=== PATIENT | male | born 1940 | race Caucasian/White ===

== ENCOUNTER 2019-09-06 13:15 | Day surgery (SDC) | payer MEDICARE, OTHER ==
[~2019-09-06] VITALS: Ht 167.6 cm; Wt 76.1 kg
[2019-09-06 14:19] VITALS: BP 157/82; PULSE 69; TEMP 97.2
[2019-09-06] MEDS ORDERED: PEN-VEE K500 MG PO (14:27)
[2019-09-06] MEDS ORDERED: LIPITOR 10MG10 MG PO (14:28)
[2019-09-06] MEDS ORDERED: PLAVIX 75MG TAB75 MG PO (14:28)
[2019-09-06] MEDS ORDERED: CORDARONE200 MG/TAB PO (14:29)
[2019-09-06] MEDS ORDERED: APRESOLINE 10MG10 MG PO (14:29)
[2019-09-06] MEDS ORDERED: COUMADIN 1MG1 MG/TAB PO (14:30)
[2019-09-06] MEDS ORDERED: SYNTHROID0.05 MG/TA PO (14:33)
[2019-09-06] MEDS ORDERED: LOPRESSOR 550 MG/TAB PO (14:33)
[2019-09-06] MEDS ORDERED: FLOMAX 0.40.4 MG/CAP PO (14:33)
[2019-09-06] MEDS ORDERED: IMDUR 30MG30 MG/TAB PO (14:34)
[2019-09-06] MEDS ORDERED: CALCIUM 600MG+D1 TAB PO (14:36)
[2019-09-06] MEDS ORDERED: XANAX .25M0.25 MG/TA PO (14:37)
[2019-09-06 16:31] VITALS: BP 138/67; PULSE 61; TEMP 97.2
--- NOTE | 2019-09-06 16:31 | NUR ---
TO RM 6 PER CART FROM [facility] ALERT ORIENTED X3, TALKING TO STAFF AND . CARDONA CATHETER IN PLACE WITH BLOODY URINE IN TUBING. SCANT AMOUNT IN BAG A THIS TIME. RECEIVED WATER AND CRACKERS
[2019-09-06 16:45] VITALS: BP 130/77; PULSE 60
--- NOTE | 2019-09-06 16:45 | NUR ---
ATE 100% CRACKERS AND TOLERTED WELL
[2019-09-06 17:00] VITALS: BP 160/77; PULSE 60
--- NOTE | 2019-09-06 17:00 | NUR ---
CARDONA BAG SECURE TO PATIENT'S LEG WITH A STAT LOCK. CONTINUES TO HAVE HEMATURIA. DENIES PAIN OR DISCOMFORT. C/O THE NEED TO VOID. EXPLAINED THE CATHETER WILL GIVE HIM THAT FEELING. RECEIVED MUFFIN.
[2019-09-06 17:40] VITALS: BP 123/73; PULSE 60
--- NOTE | 2019-09-06 17:40 | NUR ---
RECEIVED INSTRUCTIONS ON HOW TO CHANGE CARDONA BAG TO LEG BAG AND HOW TO DRAIN THE URINE. PATIENT AND VERBALIZED LEAVING THE CARDONA DOWN DRAIN BAG AT THIS TIME. RECEIVED ALCOHOL PADS, GRADUATE AND LEG BAG. PATIENT TOOK PICTURE OF LEG BAG ATTACHED TO LEG. ATE 100% MUFFIN. RECEIVED DISCHARGE INSTRUCTIONS, PATIENT AND VERBALIZED UNDERSTANDING. TALKED WITH THE OFFICE FOR A FOLLOW UP APPOINTMENT DATE AND TIME.
--- NOTE | 2019-09-06 17:50 | NUR ---
DISCHARGED PER WC BY NURSING STAFF TO PRIVATE CAR IN CARE OF .
== END 2019-09-06 18:04 | disposition home or self-care (01) ==
LOC: SDCO 13:15
DX: N35.814 Other anterior urethral stricture, male (principal); L90.0 Lichen sclerosus et atrophicus; I48.91 Unspecified atrial fibrillation; F41.9 Anxiety disorder, unspecified; I25.10 Atherosclerotic heart disease of native coronary artery without angina pectoris; I10 Essential (primary) hypertension; E03.9 Hypothyroidism, unspecified; N18.9 Chronic kidney disease, unspecified; K40.90 Unilateral inguinal hernia, without obstruction or gangrene, not specified as recurrent; I25.2 Old myocardial infarction; M19.90 Unspecified osteoarthritis, unspecified site; Z95.1 Presence of aortocoronary bypass graft; Z85.828 Personal history of other malignant neoplasm of skin; Z95.0 Presence of cardiac pacemaker; Z79.01 Long term (current) use of anticoagulants; Z79.02 Long term (current) use of antithrombotics/antiplatelets; Z87.891 Personal history of nicotine dependence; Z82.49 Family history of ischemic heart disease and other diseases of the circulatory system; Z82.3 Family history of stroke
CPT/HCPCS: C1769; C1894; J0690; J2704; J3010; J7120